=== PATIENT | male | born 1980 | race Hispanic/Latino ===

== ENCOUNTER 2017-05-17 18:29 | Emergency (ER) | payer OTHER, SELFPAY ==
[2017-05-17 19:52] LABS: #Basophils 0.1 thou/uL (0.0-0.2); #Eosinphils 0.2 thou/uL (0.0-0.7); #Lymphocytes 1.5 thou/uL (1.20-3.40); #Monocytes 0.6 thou/uL (0.11-0.59); #Neutrophils 6.9 thou/uL (1.40-6.50); %Basophils 0.6 % (0.0-1.0); %Eosinophils 1.7 % (0.0-10.0); %Lymphocytes 16.1 % (21.0-51.0); %Monocytes 6.3 % (0.0-10.0); %Neutrophils 75.2 % (42.0-75.0); Hemoglobin 17.5 g/dL (14.0-18.0); Mean Corpuscular Hemoglobin 30.2 pg (27.0-31.0); Mean Corpuscular Volume 91.5 fl (80.0-94.0); Mean Platelet Volume 8.6 fL (7.4-10.4); Platelet Count 182 thou/uL (130-400); RBC Distribution Width 12.4 % (11.5-14.5); Red Blood Cell (RBC) Count 5.81 mill/uL (4.70-6.10); White Blood Cell (WBC) Count 9.1 thou/uL (4.8-10.8)
[2017-05-17 20:13] LABS: ALT (SGPT) 62 U/L (8-55); AST (SGOT) 65 U/L (5-34); Albumin 4.8 g/dL (3.5-5.0); Alkaline Phosphatase 99 U/L (40-150); Anion Gap 13 mmol/L (10-20); BUN (Urea Nitrogen) 9 mg/dL (8.9-20.6); Calc. Creatinine Clearance 0 mL/min (70-130); Carbon Dioxide 25 mmol/L (22-29); Chloride 100 mmol/L (98-107); Estimated GFR-MDRD Greater than 90; Globulin 3.8 g/dL (2.4-3.5); Glucose 115 mg/dL (70-105); Potassium 4.1 mmol/L (3.5-5.1); Protein, Total 8.6 g/dL (6.0-8.3); Sodium 134 mmol/L (136-145)
[2017-05-17 21:01] LABS: CKMB 1.8 ng/mL (0-6.6); Troponin I 0.029 ng/mL (< 0.028)
[2017-05-17] MEDS ORDERED: Amlodipine 5 MG TAB ONE (21:29)
[2017-05-17 23:33] LABS: Troponin I 0.022 ng/mL (< 0.028)
== END 2017-05-17 23:53 | disposition home or self-care (01) ==
LOC: ERS 18:29
DX: I10 Essential (primary) hypertension (principal); Z91.14 Patient's other noncompliance with medication regimen; Z79.899 Other long term (current) drug therapy
CPT/HCPCS: 36415; 36416; 80053; 82553; 84484; 85025; 93005

== ENCOUNTER 2018-06-19 17:17 | Emergency (ER) | payer SELFPAY ==
[2018-06-19 17:53] LABS: #Basophils 0.1 thou/uL (0.0-0.2); #Eosinphils 0.2 thou/uL (0.0-0.7); #Lymphocytes 2.5 thou/uL (1.20-3.40); #Monocytes 0.8 thou/uL (0.11-0.59); #Neutrophils 5.1 thou/uL (1.40-6.50); %Basophils 1.4 % (0.0-1.0); %Eosinophils 2.6 % (0.0-10.0); %Lymphocytes 28.5 % (21.0-51.0); %Monocytes 9.6 % (0.0-10.0); %Neutrophils 57.9 % (42.0-75.0); Hemoglobin 16.9 g/dL (14.0-18.0); Mean Corpuscular HGB CONC 33.6 g/dL (32.0-36.0); Mean Corpuscular Hemoglobin 29.2 pg (27.0-31.0); Mean Platelet Volume 8.8 fL (7.4-10.4); Platelet Count 155 thou/uL (130-400); Red Blood Cell (RBC) Count 5.79 mill/uL (4.70-6.10); White Blood Cell (WBC) Count 8.8 thou/uL (4.8-10.8)
[2018-06-19 18:14] LABS: INR-International Normal Ratio 1.1; PTT 32.6 SEC (22.9-36.1)
[2018-06-19 18:22] LABS: ALT (SGPT) 37 U/L (8-55); AST (SGOT) 30 U/L (5-34); Albumin 4.7 g/dL (3.5-5.0); Alkaline Phosphatase 83 U/L (40-150); Anion Gap 13 mmol/L (10-20); BUN (Urea Nitrogen) 9 mg/dL (8.9-20.6); Bilirubin, Total 0.9 mg/dL (0.2-1.2); CK (CPK) 78 U/L (30-200); Calc. Creatinine Clearance 0 mL/min (70-130); Calcium 9.8 mg/dL (7.8-10.44); Carbon Dioxide 29 mmol/L (22-29); Chloride 99 mmol/L (98-107); Estimated GFR-MDRD Greater than 90; Globulin 3.4 g/dL (2.4-3.5); Glucose 112 mg/dL (70-105); Lipase 33 U/L (8-78); Potassium 3.9 mmol/L (3.5-5.1); Protein, Total 8.1 g/dL (6.0-8.3); Sodium 137 mmol/L (136-145)
--- NOTE | 2018-06-19 18:44 | RAD ---
PORTABLE AP CHEST X-RAY 06/19/18 HISTORY: Chest pain. Patient complains of right sided chest pain with radiation down right arm. COMPARISON: 11/15/16. FINDINGS: The cardiac silhouette and pulmonary vasculature are within normal limits. The lungs remain clear. th ere has been no interval change compared to the prior exam. IMPRESSION: No acute cardiopulmonary process. POS: H
--- NOTE | 2018-06-19 19:43 | CT ---
NONCONTRAST CT HEAD 06/19/18 HISTORY: Arm numbness. COMPARISON: None available. FINDINGS: There is no evidence of a hemorrhage, acute infarction, mass effect, or midline shift. The ventricula r system is normal in size, shape and position. The visualized paranasal sinuses and mastoid air cell s are clear. There is a defect in the right medial orbital wall which may be related to prior injury or possibly developmental in origin. Mastoid air cells are clear. No acute calvarial fracture is seen . IMPRESSION: No acute intracranial abnormality is demonstrated. POS: H
== END 2018-06-19 22:09 | disposition home or self-care (01) ==
LOC: ERS 17:17
DX: R07.89 Other chest pain (principal); I10 Essential (primary) hypertension; F17.210 Nicotine dependence, cigarettes, uncomplicated; Z79.899 Other long term (current) drug therapy
CPT/HCPCS: 36415; 70450; 71045; 80053; 82550; 83690; 83880; 84484; 85025; 85610; 85730; 93005

== ENCOUNTER 2018-11-29 17:02 | Emergency (ER) | payer SELFPAY ==
--- NOTE | 2018-11-29 17:19 | RAD ---
Chest AP view INDICATION: Left-sided chest pain COMPARISON: June 19, 2018 FINDINGS: Lungs:The lungs are clear Cardiac silhouette:The cardiomediastinal silhouette appears within normal limits. Pulmonary vasculature:Normal Pleural spaces:No pleural effusion or pneumothorax is demonstrated. Upper abdomen:No abnormality seen. Osseous structures: No acute osseous abnormality. Additional findings:None. IMPRESSION: No acute cardiopulmonary abnormality.
[2018-11-29 17:35] LABS: #Basophils 0.1 thou/uL (0.0-0.2); #Eosinphils 0.3 thou/uL (0.0-0.7); #Lymphocytes 1.8 thou/uL (1.20-3.40); #Monocytes 0.7 thou/uL (0.11-0.59); #Neutrophils 6.6 thou/uL (1.40-6.50); %Lymphocytes 18.8 % (21.0-51.0); %Monocytes 7.7 % (0.0-10.0); %Neutrophils 69.6 % (42.0-75.0); Hemoglobin 17.7 g/dL (14.0-18.0); Mean Corpuscular HGB CONC 35.6 g/dL (32.0-36.0); Mean Corpuscular Hemoglobin 32.5 pg (27.0-31.0); Mean Corpuscular Volume 91.3 fL (78.0-98.0); Mean Platelet Volume 8.5 fL (7.4-10.4); Platelet Count 122 thou/uL (130-400); Red Blood Cell (RBC) Count 5.44 mill/uL (4.70-6.10); White Blood Cell (WBC) Count 9.4 thou/uL (4.8-10.8)
[2018-11-29 17:58] LABS: ALT (SGPT) 50 U/L (8-55); AST (SGOT) 54 U/L (5-34); Albumin 4.6 g/dL (3.5-5.0); Alkaline Phosphatase 87 U/L (40-150); Anion Gap 13 mmol/L (10-20); BUN (Urea Nitrogen) 9 mg/dL (8.9-20.6); Bilirubin, Total 1.9 mg/dL (0.2-1.2); CK (CPK) 77 U/L (30-200); Calc. Creatinine Clearance 0 mL/min (70-130); Calcium 9.5 mg/dL (7.8-10.44); Carbon Dioxide 26 mmol/L (22-29); Chloride 99 mmol/L (98-107); Estimated GFR-MDRD Greater than 90; Globulin 3.5 g/dL (2.4-3.5); Glucose 153 mg/dL (70-105); Lipase 26 U/L (8-78); Potassium 4.2 mmol/L (3.5-5.1); Protein, Total 8.1 g/dL (6.0-8.3); Sodium 134 mmol/L (136-145)
[2018-11-29 18:50] LABS: Bilirubin Negative (Negative); Blood, Urine Negative (Negative); Clarity Clear (Clear); Glucose, Urine (Dipstick) 50 mg/dL (Negative); Leukocyte Negative Leu/uL (Negative); Nitrite Negative (Negative); Protein, Urine (Dipstick) 10 mg/dL (Neg-Trace); Urobilinogen Normal mg/dL (Less than 2)
--- NOTE | 2018-12-01 15:23 | EKG ---
Test Reason : Blood Pressure : / mmHG Vent. Rate : 073 BPM Atrial Rate : 073 BPM P-R Int : 130 ms QRS Dur : 088 ms QT Int : 362 ms P-R-T Axes : 028 027 017 degrees QTc Int : 398 ms Normal sinus rhythm Normal ECG Confirmed by SERJIO SANTIAGO DO ([id number]), associate editor GERMÁN AVERY ([id number] on 12/01/2018 3:23:37 PM Referred By: Confirmed By:SERJIO SANTIAGO DO
== END 2018-11-29 20:25 | disposition home or self-care (01) ==
LOC: ERS 17:02
DX: R07.89 Other chest pain (principal); E86.0 Dehydration; I10 Essential (primary) hypertension; F17.210 Nicotine dependence, cigarettes, uncomplicated; Z79.899 Other long term (current) drug therapy
CPT/HCPCS: 36415; 71045; 80053; 81003; 82550; 83690; 84484; 85025; 93005; 94760

== ENCOUNTER 2020-05-20 01:46 | Emergency (ER) | payer SELFPAY ==
[2020-05-20] MEDS ORDERED: Aspirin Chewable 81 MG TAB ONE (02:09)
[2020-05-20 02:21] LABS: #Basophils 0.1 thou/uL (0.0-0.2); #Eosinphils 0.3 thou/uL (0.0-0.7); #Monocytes 0.8 thou/uL (0.11-0.59); #Neutrophils 5.5 thou/uL (1.40-6.50); %Basophils 1.1 % (0.0-1.0); %Eosinophils 3.2 % (0.0-10.0); %Lymphocytes 23.3 % (21.0-51.0); %Monocytes 9.1 % (0.0-10.0); %Neutrophils 63.3 % (42.0-75.0); Hemoglobin 17.1 g/dL (14.0-18.0); Mean Corpuscular HGB CONC 34.5 g/dL (32.0-36.0); Mean Corpuscular Hemoglobin 32.5 pg (27.0-31.0); Mean Corpuscular Volume 94.3 fL (78.0-98.0); Mean Platelet Volume 8.7 fL (7.4-10.4); Platelet Count 141 thou/uL (130-400); RBC Distribution Width 11.9 % (11.5-14.5); Red Blood Cell (RBC) Count 5.27 mill/uL (4.70-6.10); White Blood Cell (WBC) Count 8.7 thou/uL (4.8-10.8)
[2020-05-20 02:43] LABS: ALT (SGPT) 58 U/L (8-55); AST (SGOT) 62 U/L (5-34); Alkaline Phosphatase 108 U/L (40-110); Anion Gap 13 mmol/L (10-20); BUN (Urea Nitrogen) 9 mg/dL (8.9-20.6); Calc. Creatinine Clearance 0 mL/min (70-130); Calcium 8.7 mg/dL (7.8-10.44); Carbon Dioxide 22 mmol/L (22-29); Chloride 102 mmol/L (98-107); Globulin 3.3 g/dL (2.4-3.5); Glucose 182 mg/dL (70-105); Potassium 4.1 mmol/L (3.5-5.1); Protein, Total 7.3 g/dL (6.0-8.3); Sodium 133 mmol/L (136-145)
[2020-05-20 04:33] LABS: Troponin I 0.025 ng/mL (< 0.028)
--- NOTE | 2020-05-20 07:38 | RAD ---
ONE VIEW CHEST: COMPARISON: 11/29/2018. HISTORY: Intermittent chest pain. FINDINGS: Magnification of the cardiac silhouette due to portable technique. Pulmonary vessels and hilum are n ormal. Costophrenic angles are clear. No consolidation or mass. No pneumothorax or acute osseous a bnormalities. IMPRESSION: No acute cardiopulmonary process. POS: PPP
== END 2020-05-20 05:11 | disposition home or self-care (01) ==
LOC: ERS 01:46
DX: R07.2 Precordial pain (principal); E11.9 Type 2 diabetes mellitus without complications; I10 Essential (primary) hypertension; Z79.899 Other long term (current) drug therapy; Z79.84 Long term (current) use of oral hypoglycemic drugs
CPT/HCPCS: 36415; 71045; 80053; 84484; 85025; 93005